=== PATIENT | female | born 1950 | race Hispanic/Latino ===

== ENCOUNTER 2024-09-10 11:32 | Emergency (ER) | payer MEDICARE, OTHER ==
[~2024-09-10] VITALS: Ht 154.9 cm; Wt 71.7 kg
--- NOTE | 2024-09-10 12:32 | ERN ---
ED Note History of Present Illness Stated Complaint: HEADACHE Chief Complaint: Headache Time Seen by MD: 11:50 Dictation: The patient is a 74-year-old female patient with a medical history of hypertension, chronic back pain presented to the emergency department with complaints of worsening headaches and pain behind the ears over the past four days. She reports experiencing chronic headaches intermittently for the past year. Currently, she describes the pain as localized to the left mastoid area, characterizing it as a pressure and burning sensation, rated at 9 out of 10 in severity. The patient's primary care physician administered an intramuscular i njection of tramadol yesterday, which provided some relief; however, she awoke today with persistent headaches. She denies any previous occurrences of tension headaches, cluster headaches, or migraines. Additionally, she reports no symptoms of fever, chills, dizziness, ear infections, lightheadedness, chest pain, vomiting, diarrhea, or any recent viral illnesses. Allergies: Coded Allergies: No Known Allergies (Unverified Allergy, Unknown, 09/10/24) Home Meds Active Scripts Naproxen (Naproxen) 250 Mg Tablet, 1 TAB PO BID for pain for 14 Days, #28 TAB 0 Refills Prov:SUMEET PANIAGUA MD 09/10/24 Past Medical History Past Medical History: Hypertension Surgical History: Other Review of System Dictation REVIEW OF SYSTEMS CONSTITUTIONAL: Complaints of pain and pressure kind of sensation behind the ears, headaches Denies fevers, chills, or night sweats. No unintentional weight loss reported. NEUROLOGICAL: Denies headache, amaurosis fugax, motor weakness, sensory deficit, vertigo/spinning sensation, gait abnormalities, or tremors. ENT: No hearing loss, otalgia, otorrhea, rhinitis, rhinorrhea, hoarseness, or sore throat. CARDIOVASCULAR: Denies any exertional angina, dyspnea on exertion, orthopnea, paroxysmal nocturnal dyspnea, palpitations, life-threatening arrhythmias, claudication. PULMONARY: Denies any shortness of breath, cough, phlegm/sputum, hemoptysis, pleuritic chest pain. SLEEP: Denies morning headaches, daytime somnolence or napping. Denies difficulty falling asleep, staying asleep, waking from sleep. Denies knowledge of snoring. GASTROINTESTINAL: Denies any type of dysphagia to either liquids or solids. Denies nausea, vomiting, pyrosis, early satiety, abdominal pain, diarrhea, constipation, or changes in stool consistency or caliber. Denies coffee-ground emesis, hematemesis, hematochezia, or melanotic stools. GENITOURINARY: Denies frequency, urgency, nocturia, hematuria or incontinence (Storage/Irritative symptoms.) Low urinary stream, straining to void, urinary intermittency or hesitancy, splitting of the voiding stream, terminal dribbling. ENDOCRINOLOGIC: Denies polyuria, polydipsia, polyphagia or heat/cold intolerances. HEMATOLOGIC: Denies thrombophilia/previous clots, or coagulopathy/bleeding disorders. ONCOLOGIC: Denies personal history of malignancy. DERMATOLOGIC: Denies rashes or pruritus. PSYCHIATRIC: Denies any suicidal or homicidal ideation. Denies hallucinations. Initial Vital Sign VS Vital Signs Date Time Temp Pulse Resp B/P (MAP) Pulse Ox O2 Delivery O2 Flow Rate FiO2 09/10/24 11:55 98.2 79 20 143/86 99 Room Air 09/10/24 15:07 0 21 Physical Exam Dictation PHYSICAL EXAM GENERAL APPEARANCE: The patient is awake, alert, and oriented, in no acute cardiopulmonary distress. NEUROLOGICAL: Cranial nerves II-XII grossly intact. Motor is 5/5 in bilateral upper and lower extremities proximal to distal. No sensory deficits. HEENT: Face is symmetric. Pupils are equal and reactive. Extraocular movements are intact. NECK: Supple. No JVD. No thyromegaly. No submental, submandibular, pre-/p ostauricular, occipital or supraclavicular lymphadenopathy. CHEST: Normal chest expansion. No Telemetry. LUNGS: Absence of any rales, rhonchi or any wheezing. CARDIOVASCULAR: Regular. S1 and S2 normal. No appreciable rubs, murmurs or gallops. ABDOMEN: Soft, nontender, and nondistended. There is no rebound, voluntary guarding, or rigidity. : Deferred. No [place]. EXTREMITIES: Non-edematous and not cyanotic. No clubbing. Good capillary refi ll. SKIN: No skin breakdown. Results (Laboratory/Radiology) CT Scan Comment: [place] [id number] [place] [id number] IMAGING REPORT Signed PATIENT: ARGENIS IRVING MR#: [id number] : 1950 SEX: F AGE: 74 LOCATION: [facility] ORDER 1232 STATUS: REG ER REPORT#: [id number] SERVICE 1230 REASON: Left mastoid tenderness, Photophobia ORDERING PHYSICIAN: SUMEET PANIAGUA MD PROCEDURE: HEAD WO - CT HEAD/BRAIN W/O CONTRAST Exam Type: CT HEAD/BRAIN W/O CONTRAST Clinical Information: Left mastoid tenderness, Photophobia Comparison: None CT Dose Index (CTDI): 57.33 mGy Dose Length Product (DLP): 956.79 total mGy-cm Findings: The examination is unremarkable. Wyman-white matter junction is preserved. No intra or extra axial lesions or fluid collections are seen. Specifically, wyman and white matter are normal in signal characteristics with normal caliber of ventricles and periventricular cisterns with no evidence of intra or or extra-axial hemorrhage, lacunar infarct, or major territorial infarct, mass, or other abnormality. There are no infarcts. There are no hemorrhages. Periventricular white matter locations are preserved. The orbital contents and structures of the posterior fossa are intact. Impression: Normal CT of the head. This study was performed using dose reduction techniques to include automated exposure control and/or adjustment of the mA and/or kV according to patient size. DICTATED BY: MICHI BERRIOS MD DATE: 09/10/241309 ELECTRONICALLY SIGNED BY: MICHI BERRIOS MD DATE: 09/10/24 131 ED Course ED Course Orders Procedure Category Date Status Time Ct Head/Brain W/O CT 09/10/24 Resulted Contrast 12:30 Acetaminophen 500mg PHA 09/10/24 Complete Tab (Tylenol 500mg T 13:00 Current Medications Medications (Trade) Dose Ordered Sig/Fortunato Route PRN Reason Start Time Stop Time Status Last Admin Dose Admin Acetaminophen (TYLenol 500MG TAB) 500 mg ONCE ONCE PO 09/10/24 13:00 09/10/24 13:01 DC 09/10/24 15:00 Vital Signs Date Time Temp Pulse Resp B/P (MAP) Pulse Ox O2 Delivery O2 Flow Rate FiO2 09/10/24 15:10 98.2 68 20 156/85 99 Room Air* 0 21 09/10/24 15:07 98.2 79 20 143/86 99 Room Air* 0 21 09/10/24 11:55 98.2 79 20 143/86 99 Room Air 12:30 The patient was assessed in the emergency department triage room 2, accompanied by her son at the bedside. She is afebrile, with a pulse rate of 79 and slightly elevated blood pressure measuring 143/86. Although she appears comfortable, she prefers to keep her eyes closed due to sensitivity to light. Upon examination, both Kernig's and Brudzinski's signs were negative. A CT scan of the head and brain without contrast will be ordered to exclude any underlying infectious processes and to determine if the patient necessitates emergency treatment or inpatient admission. Continuous monitoring of the patient will be conducted. 01:[address] scan head/brain did not show any acute abnormalities. The patient's pain likely secondary to musculoskeletal origin, tension headaches. The patient was advised to take axah-nae-mykjsii medication as needed for the pain. The plan of care was discussed with the patient, she verbalizes understanding. The patient is medically stable for discharge at home. Medical Decision Making [facility] Differential diagnosis: Musculoskeletal neck pain, Tension headaches Rationale: Tests considered and ordered secondary to shared decision making in clude: Previous outside records reviewed: Old ER visits. Risk of complication and/or morbidity or mortality of patient management: None Medications-Per medication reconciliation Need for hospitalization: Patient does not meet criteria for hospitalization. Need for emergency major/minor surgery: No There are no social concerns with this patient. Prescription drug management Prescriptions will include symptomatic care Patient's prior external medical records from other ER visits were reviewed by me as indicated. Prior testing and results from previous visits were reviewed. Prior tests were taken into account with medical decision making and resource utilization, independent historian/historians were used to obtain complete medical history. I independently interpreted the test that were performed, results were reviewed by me and considered findings on radiology if ordered. DX & DISP Disposition: Discharge Departure Impression: Primary Impression: Musculoskeletal neck pain Additional Impression: Tension type headache, unspecified Condition: Stable Scripts Naproxen (Naproxen) 250 Mg Tablet 1 TAB PO BID for pain for 14 Days, #28 TAB 0 Refills Prov: SUMEET PANIAGUA MD 09/10/24 Additional Instructions: Rest in a quiet, dark room Apply a cool cloth to your forehead Take dvsv-[id number] pain medicines like ibuprofen, or acetaminophen as needed Take a hot or cold shower or bath Gently massage your neck and shoulders Seek medical advice when you experience new symptoms like fever, weakness, numbness, vision changes, or confusion Consider avoiding foods that trigger headaches Visit the nearest emergency department or call 911 should the symptoms return or get worse. Referrals: FLORENTIN BARAJAS MD (PCP) I have reviewed, & agreed with my scribe's, documentation. I have reviewed the case, and I agree with, Diagnosis and Plan I have examined patient, & reviewed all documents, & agreed W/ the Diagnosis, and Plan ATTESTATION BY PHYSICIAN I have seen and examined the patient. I reviewed the documentation, medical decision making, and treatment plan as noted by the resident provider above. I agree with the findings and plan of care. Russell Bland MD, MANALI MD Sep 10, 2024 12:32 SHAUNA DECKER DO Sep 11, 2024 07:14
--- NOTE | 2024-09-10 13:14 | HMCIMG ---
Exam Type: CT HEAD/BRAIN W/O CONTRAST Clinical Information: Left mastoid tenderness, Photophobia Comparison: None CT Dose Index (CTDI): 57.33 mGy Dose Length Product (DLP): 956.79 total mGy-cm Findings: The examination is unremarkable. Wyman-white matter junction is preserved. No intra or extra axial lesions or fluid collections are seen. Specifically, wyman and white matter are normal in signal characteristics with normal caliber of ventricles and periventricular cisterns with no evidence of intra or or extra-axial hemorrhage, lacunar infarct, or major territorial infarct, mass, or other abnormality. There are no infarcts. There are no hemorrhages. Periventricular white matter locations are preserved. The orbital contents and structures of the posterior fossa are intact. Impression: Normal CT of the head. This study was performed using dose reduction techniques to include automated exposure control and/or adjustment of the mA and/or kV according to patient size.
[2024-09-10] MEDS ORDERED: NAPR-1196 PO (13:47)
[2024-09-10] MEDS: acetaMINOPHEN 500 MG TABLET PO ONE (15:00)
[2024-09-10 15:10] VITALS: BP 156/85; PULSE 68; RESP 20; TEMP 98.2; O2SAT 99
== END 2024-09-10 15:10 | disposition home or self-care (01) ==
LOC: EDH 11:32
DX: M54.2 Cervicalgia (principal); G44.209 Tension-type headache, unspecified, not intractable; I10 Essential (primary) hypertension
CPT/HCPCS: 70450; 99284